=== PATIENT | female | born 1950 | race Caucasian/White ===

== ENCOUNTER 2018-08-16 08:44 | Outpatient (CLI) | payer MEDICARE, OTHER ==
[2018-08-16 10:32] LABS: eGFR (Non-African) > 60
--- NOTE | 2018-08-16 11:33 | Diagnostic Imaging Report ---
HEATHER TEJADA [facility] [address] [facility].[address] [id number] Report Submission Date: Aug 16, 2018 11:31:50 AM [employer] Patient Study Name: LUÍS BALDERAS Date: Aug 16, 2018 12:00:00 AM [employer] Modality Type: DEXA\OT Gender: F Description: DEXA : 54 Institution: [facility] Physician: HEATHER TEJADA Examination: Bone density History: Assess bone mineralization Comparison exams: None Technique: DEXA protocol Findings: Average bone mineral density from L1 through L4: 0.962 grams cm2. T score: -1.8 Bone mineral density of the left hip (total) 0.993 gm/cm2. T score: -0.6 Bone mineral density of the right hip (total) 0.876 gm/cm2. T score: -1.0 Impression: Lumbar spine osteopenia. Normal (total) hip mineralization for age Electronically signed on Aug 16, 2018 11:31:50 AM [employer] by: David REED
== END 2018-08-16 08:46 ==
LOC: RAD 08:44
PROVIDERS: ATTEND Family Medicine
DX: M85.88 Other specified disorders of bone density and structure, other site (principal); Z13.6 Encounter for screening for cardiovascular disorders; Z78.0 Asymptomatic menopausal state
CPT/HCPCS: 36415; 77080; 80053; 80061